=== PATIENT | male | born 1940 | race Caucasian/White ===

== ENCOUNTER 2017-04-19 19:13 | Emergency (ER) | payer MEDICARE ==
[2017-04-19] MEDS ORDERED: Verapamil 5 MG/2 ML SDV IVPUSH ONE (19:26)
--- NOTE | 2017-04-19 19:54 | EDM.PDOC ---
ED HPI GENERAL MEDICAL PROBLEM - General Chief Complaint: Cardiovascular Problem Stated Complaint: HEART Time Seen by Provider: 04/19/17 19:30 Source of Information: Reports: Patient, Family History Limitations: Reports: No Limitations - History of Present Illness INITIAL COMMENTS - FREE TEXT/NARRATIVE: 76-year-old male who has been having intermittent palpitations for several months tonight developed a rapid heartbeat which wasn't slowing down. After it lasted for 2 hours he came into the emergency room. No chest pain or shortness of breath. Just feels uncomfortable. He was very active working in the yard today. He is on hydrochlorothiazide, his only medication and has not seen a doctor for some time. He has not told anybody about his intermittent palpitations. Onset: Sudden Duration: Hour(s): (Pain occurred in his neck and back roughly 2 and one half hours ago.) Location: Reports: Neck, Chest, Back Severity: Moderate Associated Symptoms: Reports: No Other Symptoms Headache Pain Score (Numeric/FACES): 4 - Related Data Allergies Allergy/AdvReac Type Severity Reaction Status Date / Time hydrocodone Allergy Nausea and Verified 04/19/17 19:27 Vomiting Mfbromk-Vkd-Aog Reductase Allergy Muscle Verified 04/19/17 19:27 Inhibitor Weakness Home Meds: Home Meds Hydrochlorothiazide [Hydrochlorothiazide] 25 mg PO DAILY 04/20/17 [History] amLODIPine Besylate [Amlodipine Besylate] 10 mg PO DAILY 04/20/17 [History] ED ROS GENERAL - Review of Systems Review Of Systems: See Below Constitutional: Denies: Fever, Chills, Malaise HEENT: Reports: No Symptoms Respiratory: Denies: Shortness of Breath, Cough Cardiovascular: Denies: Chest Pain GI/Abdominal: Denies: Abdominal Pain, Nausea, Vomiting : Reports: No Symptoms Musculoskeletal: Denies: Neck Pain, Back Pain Skin: Reports: No Symptoms. Denies: Pallor, Diaphoresis Neurological: Reports: No Symptoms Psychiatric: Reports: No Symptoms ED EXAM, GENERAL - Physical Exam Exam: See Below Exam Limited By: No Limitations General Appearance: Alert, No Apparent Distress Eye Exam: Bilateral Eye: Normal Inspection Neck: Normal Inspection, Supple, Non-Tender (I could not reproduce pain with palpation or range of motion) Respiratory/Chest: No Respiratory Distress, Lungs Clear, Chest Non-Tender Cardiovascular: Regular Rate, Rhythm, Tachycardia GI/Abdominal: Soft, Non-Tender Extremities: Normal Inspection. No: Pedal Edema Neurological: Alert, Oriented Psychiatric: Normal Affect, Normal Mood Skin Exam: Warm, Dry EKG INTERPRETATION Rhythm: A-Flutter (EKG showed a narrow complex rapid tachycardia, likely 2-1 atrial flutter) QRS: Normal ST-T: Normal Course - Vital Signs Last Recorded V/S: Last Vital Signs Temp 98.6 F 04/19/17 22:00 Pulse 62 04/19/17 22:25 Resp 9 L 04/19/17 22:25 BP 141/77 H 04/19/17 22:25 Pulse Ox 99 04/19/17 22:25 - Orders/Labs/Meds Orders: Active Orders 24 hr Category Date Time Status EKG Documentation Completion [RC] ASDIRECTED Care 04/19/17 19:26 Active EKG Documentation Completion [RC] ASDIRECTED Care 04/19/17 20:38 Active EKG 12 Lead [EK] Routine Ther 04/19/17 19:26 Ordered EKG 12 Lead [EK] Routine Ther 04/19/17 20:38 Ordered Labs: Laboratory Tests 04/19/17 04/19/17 Range/Units 19:36 19:36 WBC 5.8 (4.5-11.0) K/uL RBC 5.23 (4.30-5.90) M/uL Hgb 15.2 H (12.0-15.0) g/dL Hct 45.7 (40.0-54.0) % MCV 87 (80-98) fL MCH 29 (27-31) pg MCHC 33 (32-36) % Plt Count 185 (150-400) K/uL Neut % (Auto) 67 H (36-66) % Lymph % (Auto) 22 L (24-44) % [place] % (Auto) 10 H (2-6) % Eos % (Auto) 0 L (2-4) % Baso % (Auto) 1 (0-1) % Sodium 143 (140-148) mmol/L Potassium 2.9 L* (3.6-5.2) mmol/L Chloride 105 (100-108) mmol/L Carbon Dioxide 29 (21-32) mmol/L Anion Gap 11.9 (5.0-14.0) mmol/L BUN 19 H (7-18) mg/dL Creatinine 1.2 (0.8-1.3) mg/dL Est Cr Clr Drug Dosing 53.19 mL/min Estimated GFR (MDRD) 59 L (>60) Glucose 100 (74-106) mg/dL Calcium 9.1 (8.5-10.1) mg/dL Troponin I < 0.017 (0.000-0.056) ng/mL Meds: Medications Discontinued Medications Generic Name Dose Route Start Last Admin Trade Name Steph PRN Reason Stop Dose Admin Potassium Chloride 20 meq/ 100 mls @ 50 mls/hr 04/19/17 20:07 04/19/17 20:29 Premix IV 04/19/17 22:06 50 mls/hr ONETIME ONE Administration Sodium Chloride 1,000 mls @ 500 mls/hr 04/19/17 20:45 04/19/17 20:39 Normal Saline IV 500 mls/hr ASDIRECTED JASON Administration Propofol 100 mg 04/19/17 20:07 04/19/17 20:15 Diprivan 20 Ml IVPUSH 04/19/17 20:08 100 mg ONETIME ONE Administration Verapamil HCl 5 mg 04/19/17 19:26 04/19/17 19:31 Calan IVPUSH 04/19/17 19:27 5 mg ONETIME ONE Administration - Re-Assessments/Exams Free Text/Narrative Re-Assessment/Exam: Initially I tried verapamil 5 mg IV which converted the atrial flutter to an atrial fibrillation with fairly good rate control but the patient did not convert to sinus rhythm. He has not eaten anything for 3 hours, and CBC BMP and troponin were obtained. His potassium was only 2.9. Other labs are reassuring, troponin was 0. At that point after signed consent the patient was given 80 mg of IV propofol and converted with 1 synchronized cardioversion at 200 J. He did have a slight run of atrial flutter about 2 minutes after his conversion but that resolved spontaneously and he remained in sinus rhythm. 20 mEq of potassium were given IV over the next hour and a half and the patient was hydrated with 1 L of normal saline. He was started on 20 mg of potassium daily and given a prescription for 2 weeks and needs to recheck with his primary care provider in the next 1-2 weeks to discuss further workup for recurring atrial fibrillation flutter. He can return if symptoms recur. Departure - Departure Time of Disposition: 22:41 Disposition: Home, Self-Care 01 Condition: Good Clinical Impression: Atrial flutter, paroxysmal, Hypokalemia Instructions: Atrial Fibrillation, [id number] Referrals: Ovidio Jones MD [Primary Care Provider] - Forms: ED Department Discharge Care Plan Goals: Take 1 pill of potassium daily for the next 2 weeks. Make an appointment to recheck with your regular provider in the next 7-10 days, return at any time if your palpitations recur and are persistent. Stay hydrated. - My Orders Last 24 Hours: My Active Orders 04/19/17 19:26 EKG Documentation Completion [RC] ASDIRECTED EKG 12 Lead [EK] Routine 04/19/17 20:38 EKG Documentation Completion [RC] ASDIRECTED EKG 12 Lead [EK] Routine - Assessment/Plan Last 24 Hours: My Active Orders 04/19/17 19:26 EKG Documentation Completion [RC] ASDIRECTED EKG 12 Lead [EK] Routine 04/19/17 20:38 EKG Documentation Completion [RC] ASDIRECTED EKG 12 Lead [EK] Routine
[2017-04-19] MEDS ORDERED: Propofol 200 MG/20 ML SDV IVPUSH ONE (20:07)
[2017-04-19] MEDS ORDERED: Potassium Chloride 20 MEQ in Premix Bag 1 BAG IV ONE (20:07)
[2017-04-19] MEDS ORDERED: Sodium Chloride 0.9% 1,000 ML IV SCH (20:45)
== END 2017-04-19 22:42 | disposition home or self-care (01) ==
LOC: JP.ED 19:13
DX: I48.92 Unspecified atrial flutter (principal); E87.6 Hypokalemia; Z79.899 Other long term (current) drug therapy; Z88.5 Allergy status to narcotic agent; Z88.8 Allergy status to other drugs, medicaments and biological substances
CPT/HCPCS: 36415; 80048; 84484; 85025; 92960; 93005; 93010; 96365; 96366; 96375; 99285; J2704; J3480; J7040; 99284; J3490

== ENCOUNTER 2017-05-15 09:56 | Emergency (ER) | payer MEDICARE ==
[2017-05-15] MEDS ORDERED: Diltiazem 25 MG/5 ML SDV IVPUSH ONE ×2 (10:10→12:16)
[2017-05-15] MEDS ORDERED: Sodium Chloride 0.9% 10 ML Syringe FLUSH PRN (10:10)
--- NOTE | 2017-05-15 10:12 | EDM.PDOC ---
ED HPI GENERAL MEDICAL PROBLEM - General Chief Complaint: Cardiovascular Problem Stated Complaint: FAST HEART RATE Time Seen by Provider: 05/15/17 10:12 Source of Information: Reports: Patient History Limitations: Reports: No Limitations - History of Present Illness INITIAL COMMENTS - FREE TEXT/NARRATIVE: pt arrived stating that he went into a rapid heart rhythm at 8 am. He did not have chest pain. He has not kyleigh sob. He did have a cardioversion done about 3 weeks ago for what was thought to be atrial flutter. Onset: Today, Sudden Duration: Hour(s): Location: Reports: Chest Associated Symptoms: Reports: Shortness of Breath, Other ( rapid heart rate. ) - Related Data Allergies Allergy/AdvReac Type Severity Reaction Status Date / Time hydrocodone Allergy Nausea and Verified 04/19/17 19:27 Vomiting Ahyiklq-Jxv-Ssq Reductase Allergy Muscle Verified 04/19/17 19:27 Inhibitor Weakness Home Meds: Home Meds Hydrochlorothiazide [Hydrochlorothiazide] 25 mg PO DAILY 04/20/17 [History] amLODIPine Besylate [Amlodipine Besylate] 10 mg PO DAILY 04/20/17 [History] Potassium Chloride 20 meq PO DAILY 05/15/17 [History] Past Medical History HEENT History: Reports: Cataract Cardiovascular History: Reports: Arrhythmia, Hypertension, Other (See Below) Other Cardiovascular History: flutter with cardiovertion Dermatologic History: Reports: Eczema - Infectious Disease History Infectious Disease History: Reports: Chicken Pox, Measles - Past Surgical History HEENT Surgical History: Reports: Cataract Surgery Cardiovascular Surgical History: Reports: None GI Surgical History: Reports: Hernia Repair/Other Social & Family History - Family History Family Medical History: Noncontributory - Tobacco Use Smoking Status *Q: Never Smoker Second Hand Smoke Exposure: No - Caffeine Use Caffeine Use: Reports: Coffee - Alcohol Use Days Per Week of Alcohol Use: 7 Number of Drinks Per Day: 1 Total Drinks Per Week: 7 - Recreational Drug Use Recreational Drug Use: No ED ROS GENERAL - Review of Systems Review Of Systems: See Below Constitutional: Reports: Weakness HEENT: Reports: No Symptoms Respiratory: Reports: Other (pt has had a severe cough. This is presently getting better. ) Cardiovascular: Reports: Palpitations Endocrine: Reports: No Symptoms GI/Abdominal: Reports: No Symptoms : Reports: No Symptoms Musculoskeletal: Reports: No Symptoms Skin: Reports: No Symptoms ED EXAM, GENERAL - Physical Exam Exam: See Below Free Text/Narrative:: pt arrived and he stated that his heart went into a abnormal heart rhythm about 8 am. He states it was very rapid. He did have a echo on thur and this did not show allarming findings. Exam Limited By: No Limitations General Appearance: Alert, Anxious, Moderate Distress Ears: Normal TMs Nose: Normal Inspection Throat/Mouth: Normal Inspection Head: Atraumatic Neck: Normal Inspection Respiratory/Chest: No Respiratory Distress Cardiovascular: Tachycardia, Irregularly Irregular, Other ( rate is 160. ) GI/Abdominal: Soft, Non-Tender (Male) Exam: Deferred Rectal (Males) Exam: Deferred Back Exam: Normal Inspection Extremities: Normal Inspection Neurological: Alert, Oriented, Normal Cognition Psychiatric: Normal Affect Course - Vital Signs Last Recorded V/S: Last Vital Signs Temp 37.1 C 05/15/17 10:53 Pulse 59 L 05/15/17 14:42 Resp 18 05/15/17 14:42 BP 119/63 05/15/17 14:42 Pulse Ox 94 L 05/15/17 13:48 - Orders/Labs/Meds Orders: Active Orders 24 hr Category Date Time Status EKG Documentation Completion [RC] ASDIRECTED Care 05/15/17 10:10 Active Chest 1V Frontal [CR] Stat Exams 05/15/17 10:29 Taken Diltiazem [Cardizem] 100 mg Med 05/15/17 11:00 Active Sodium Chloride 0.9% [Normal Saline] 100 ml IV TITRATE Sodium Chloride 0.9% [Saline Flush] Med 05/15/17 10:10 Active 10 ml FLUSH ASDIRECTED PRN Saline Lock Insert [OM.PC] Routine Oth 05/15/17 10:10 Ordered EKG 12 Lead [EK] Routine Ther 05/15/17 10:10 Ordered Medication Orders Diltiazem HCl 100 mg/ Sodium (Chloride) 100 mls @ 5 mls/hr IV TITRATE JASON; 5 MG /HR PRN Reason: Protocol Last Titration: 05/15/17 13:23 Dose: 15 mg/hr, 15 mls/hr Titration: 05/15/17 12:15 Dose: 10 mg/hr, 10 mls/hr Admin: 05/15/17 11:04 Dose: 5 mg/hr, 5 mls/hr Sodium Chloride (Saline Flush) 10 ml FLUSH ASDIRECTED PRN PRN Reason: Keep Vein Open Labs: Laboratory Tests 05/15/17 05/15/17 05/15/17 Range/Units 10:10 10:20 10:20 WBC 5.1 (4.5-11.0) K/uL RBC 5.37 (4.30-5.90) M/uL Hgb 15.6 H (12.0-15.0) g/dL Hct 46.7 (40.0-54.0) % MCV 87 (80-98) fL MCH 29 (27-31) pg MCHC 33 (32-36) % Plt Count 268 (150-400) K/uL Neut % (Auto) 68 H (36-66) % Lymph % (Auto) 23 L (24-44) % [place] % (Auto) 7 H (2-6) % Eos % (Auto) 1 L (2-4) % Baso % (Auto) 1 (0-1) % Sodium 138 L (140-148) mmol/L Potassium 4.9 (3.6-5.2) mmol/L Chloride 103 (100-108) mmol/L Carbon Dioxide 28 (21-32) mmol/L Anion Gap 11.9 (5.0-14.0) mmol/L BUN 19 H (7-18) mg/dL Creatinine 1.0 (0.8-1.3) mg/dL Est Cr Clr Drug Dosing 63.83 mL/min Estimated GFR (MDRD) > 60 (>60) Glucose 111 H (74-106) mg/dL Calcium 9.2 (8.5-10.1) mg/dL Magnesium (1.8-2.4) mg/dL Total Bilirubin 1.4 H (0.2-1.0) mg/dL AST 45 H (15-37) U/L ALT 29 (12-78) U/L Alkaline Phosphatase 88 (46-116) U/L Troponin I (0.000-0.056) ng/mL Total Protein 6.9 (6.4-8.2) g/dL Albumin 3.4 (3.4-5.0) g/dL Globulin 3.5 (2.3-3.5) g/dL Albumin/Globulin Ratio 1.0 L (1.2-2.2) TSH, Ultra Sensitive 1.315 (0.358-3.740) uIU/mL Urine Color Urine Appearance Urine pH (4.5-8.0) Ur Specific Vincent (1.008-1.030) Urine Protein (NEGATIVE) mg/dL Urine Glucose (UA) (NEGATIVE) mg/dL Urine Ketones (NEGATIVE) mg/dL Urine Occult Blood (NEGATIVE) Urine Nitrite (NEGAITVE) Urine Bilirubin (NEGATIVE) Urine Urobilinogen (NORMAL) mg/dL Ur Leukocyte Esterase (NEGATIVE) Urine RBC (0-5) Urine WBC (0-5) Ur Epithelial Cells Amorphous Sediment Urine Bacteria Urine Mucus 05/15/17 05/15/17 Range/Units 10:20 10:52 WBC (4.5-11.0) K/uL RBC (4.30-5.90) M/uL Hgb (12.0-15.0) g/dL Hct (40.0-54.0) % MCV (80-98) fL MCH (27-31) pg MCHC (32-36) % Plt Count (150-400) K/uL Neut % (Auto) (36-66) % Lymph % (Auto) (24-44) % [place] % (Auto) (2-6) % Eos % (Auto) (2-4) % Baso % (Auto) (0-1) % Sodium (140-148) mmol/L Potassium (3.6-5.2) mmol/L Chloride (100-108) mmol/L Carbon Dioxide (21-32) mmol/L Anion Gap (5.0-14.0) mmol/L BUN (7-18) mg/dL Creatinine (0.8-1.3) mg/dL Est Cr Clr Drug Dosing mL/min Estimated GFR (MDRD) (>60) Glucose (74-106) mg/dL Calcium (8.5-10.1) mg/dL Magnesium 1.9 (1.8-2.4) mg/dL Total Bilirubin (0.2-1.0) mg/dL AST (15-37) U/L ALT (12-78) U/L Alkaline Phosphatase (46-116) U/L Troponin I < 0.017 (0.000-0.056) ng/mL Total Protein (6.4-8.2) g/dL Albumin (3.4-5.0) g/dL Globulin (2.3-3.5) g/dL Albumin/Globulin Ratio (1.2-2.2) TSH, Ultra Sensitive (0.358-3.740) uIU/mL Urine Color Yellow Urine Appearance Clear Urine pH 8.0 (4.5-8.0) Ur Specific Vincent 1.015 (1.008-1.030) Urine Protein Negative (NEGATIVE) mg/dL Urine Glucose (UA) Normal (NEGATIVE) mg/dL Urine Ketones Negative (NEGATIVE) mg/dL Urine Occult Blood Negative (NEGATIVE) Urine Nitrite Negative (NEGAITVE) Urine Bilirubin Negative (NEGATIVE) Urine Urobilinogen Normal (NORMAL) mg/dL Ur Leukocyte Esterase Negative (NEGATIVE) Urine RBC 0-5 (0-5) Urine WBC 0-5 (0-5) Ur Epithelial Cells Rare Amorphous Sediment Not seen Urine Bacteria Not seen Urine Mucus Not seen Meds: Medications Generic Name Dose Route Start Last Admin Trade Name Freq PRN Reason Stop Dose Admin Diltiazem HCl 100 mg/ Sodium 100 mls @ 5 mls/hr 05/15/17 11:00 05/15/17 13:23 Chloride IV 15 mg/hr TITRATE JASON 15 mls/hr Protocol Titration 5 MG/HR Sodium Chloride 10 ml 05/15/17 10:10 Saline Flush FLUSH ASDIRECTED PRN Keep Vein Open Discontinued Medications Generic Name Dose Route Start Last Admin Trade Name Freq PRN Reason Stop Dose Admin Diltiazem HCl 10 mg 05/15/17 10:10 05/15/17 10:48 Diltiazem IVPUSH 05/15/17 10:11 10 mg ONETIME ONE Administration Diltiazem HCl 10 mg 05/15/17 12:16 05/15/17 12:18 Diltiazem IVPUSH 05/15/17 12:17 10 mg ONETIME ONE Administration Propofol Confirm 05/15/17 14:11 Diprivan 20 Ml Administered 05/15/17 14:12 Dose 200 mg .ROUTE .STK-MED ONE - Re-Assessments/Exams Free Text/Narrative Re-Assessment/Exam: 05/15/17 16:08 pt was placd on a cardizem drip and this did not convert him. He was electrically cardiocverted by Dr frost. AnticoagulaTION WAS DISCUSSED AND ALSO HE WAS ADVISED TO SEE A ep RECREATION PROGRAM COORDINATOR. Departure - Departure Time of Disposition: 16:10 Disposition: Home, Self-Care 01 Condition: Fair Clinical Impression: Atrial fibrillation status post cardioversion Instructions: Electrical Cardioversion, Care After Referrals: Angel Lucero MD [Primary Care Provider] - Forms: ED Department Discharge Care Plan Goals: sEE dR Lucero IN THE NEXT 10 DAYS, CONSIDER ANTICOAGULATION, --PT CHOOSE TO WAIT UNTIL AFTER THE HOLIDAYS, CONSIDER SEEING CARDILOGIST REGARDING HIS RHYTHM PROBLEMS. - My Orders Last 24 Hours: My Active Orders 05/15/17 10:10 EKG Documentation Completion [RC] ASDIRECTED Sodium Chloride 0.9% [Saline Flush] 10 ml FLUSH ASDIRECTED PRN Saline Lock Insert [OM.PC] Routine EKG 12 Lead [EK] Routine 05/15/17 10:29 Chest 1V Frontal [CR] Stat 05/15/17 11:00 Diltiazem [Cardizem] 100 mg Sodium Chloride 0.9% [Normal Saline] 100 ml IV TITRATE - Assessment/Plan Last 24 Hours: My Active Orders 05/15/17 10:10 EKG Documentation Completion [RC] ASDIRECTED Sodium Chloride 0.9% [Saline Flush] 10 ml FLUSH ASDIRECTED PRN Saline Lock Insert [OM.PC] Routine EKG 12 Lead [EK] Routine 05/15/17 10:29 Chest 1V Frontal [CR] Stat 05/15/17 11:00 Diltiazem [Cardizem] 100 mg Sodium Chloride 0.9% [Normal Saline] 100 ml IV TITRATE
[2017-05-15] MEDS ORDERED: Diltiazem 100 MG in Sodium Chloride 0.9% 100 ML IV SCH (11:00)
--- NOTE | 2017-05-15 13:02 | PCM.CONS ---
H&P History of Present Illness - General Date of Service: 05/15/17 Source of Information: Patient, Family, Old Records, Provider, RN Notes Reviewed History Limitations: Reports: No Limitations - History of Present Illness Initial Comments - Free Text/Narative: Mr. Sanchez is a 76-year-old gentleman who I been asked to see by Dr. Whaley for recommendations concerning evaluation and management of atrial fibrillation with rapid ventricular response. He was seen in the emergency department approximately 3 weeks ago with atrial flutter that then spontaneously converted to atrial fibrillation. He was cardioverted to sinus rhythm and has done fairly well over the past few weeks. He thinks that he may have had one transient episode of rapid heart rate that lasted just a few minutes and then resolve spontaneously. He felt well when he got up this morning but then noted onset of rapid heart rate at approximately 8:30. He presented to the emergency department for further evaluation and management. Initially was noted to be in atrial flutter but since has converted to atrial fibrillation. Laboratory studies are unremarkable including electrolytes and troponin. He was given IV Cardizem bolus and started on a continuous infusion of Cardizem and his rate is under better control in the range of 100-110. He denies any symptoms of chest pain or pressure shortness of breath or lightheadedness. - Related Data Allergies/Adverse Reactions: Allergies Allergy/AdvReac Type Severity Reaction Status Date / Time hydrocodone Allergy Nausea and Verified 04/19/17 19:27 Vomiting Njruenv-Djh-Hmf Reductase Allergy Muscle Verified 04/19/17 19:27 Inhibitor Weakness Home Medications: Home Meds Hydrochlorothiazide [Hydrochlorothiazide] 25 mg PO DAILY 04/20/17 [History] amLODIPine Besylate [Amlodipine Besylate] 10 mg PO DAILY 04/20/17 [History] Potassium Chloride 20 meq PO DAILY 05/15/17 [History] Past Medical History HEENT History: Reports: Cataract Cardiovascular History: Reports: Arrhythmia, Hypertension, Other (See Below) Other Cardiovascular History: flutter with cardiovertion Dermatologic History: Reports: Eczema - Infectious Disease History Infectious Disease History: Reports: Chicken Pox, Measles - Past Surgical History HEENT Surgical History: Reports: Cataract Surgery Cardiovascular Surgical History: Reports: None GI Surgical History: Reports: Hernia Repair/Other Social & Family History - Family History Family Medical History: Noncontributory - Tobacco Use Smoking Status *Q: Never Smoker Second Hand Smoke Exposure: No - Caffeine Use Caffeine Use: Reports: Coffee Other Caffeine Use: has went off caffeine for 2 weeks - Alcohol Use Days Per Week of Alcohol Use: 7 Number of Drinks Per Day: 1 Total Drinks Per Week: 7 - Recreational Drug Use Recreational Drug Use: No H&P Review of Systems - Review of Systems: Review Of Systems: See Below General: Reports: No Symptoms HEENT: Reports: No Symptoms Pulmonary: Reports: No Symptoms Cardiovascular: Reports: Palpitations. Denies: Chest Pain, Dyspnea on Exertion , Orthopnea, PND, Edema, Lightheadedness Gastrointestinal: Reports: No Symptoms Genitourinary: Reports: No Symptoms Musculoskeletal: Reports: No Symptoms Skin: Reports: No Symptoms Neurological: Reports: No Symptoms Exam - Exam Exam: See Below - Vital Signs Vital Signs: Last Vital Signs Temp 98.7 F 05/15/17 10:53 Pulse 102 H 05/15/17 12:23 Resp 18 05/15/17 12:08 BP 126/69 05/15/17 12:23 Pulse Ox 96 05/15/17 10:05 Weight: 168 lb - Exam General: Alert, Oriented, Cooperative HEENT: Conjunctiva Clear, Hearing Intact, Mucosa Moist & [place], Normal Nasal Septum, Posterior Pharynx Clear, Pupils Equal Neck: Supple, Trachea Midline, +2 Carotid Pulse wo Bruit Lungs: Clear to Auscultation, Normal Respiratory Effort Cardiovascular: Normal S1, Normal S2, Irregular Rhythm, Tachycardia. No: Systolic Murmur, Diastolic Murmur GI/Abdominal Exam: Soft, Non-Tender, No Organomegaly, No Distention Back Exam: Normal Inspection, Full Range of Motion Extremities: Non-Tender, No Pedal Edema Skin: Warm, Dry, Intact Neuro Extensive - Mental Status: Alert, Oriented x3, Normal Mood/Affect, Normal Cognition, Memory Intact - Patient Data Lab Results Last 24 hrs: Laboratory Results - last 24 hr 05/15/17 05/15/17 05/15/17 Range/Units 10:20 10:20 10:20 WBC 5.1 (4.5-11.0) K/uL RBC 5.37 (4.30-5.90) M/uL Hgb 15.6 H (12.0-15.0) g/dL Hct 46.7 (40.0-54.0) % MCV 87 (80-98) fL MCH 29 (27-31) pg MCHC 33 (32-36) % Plt Count 268 (150-400) K/uL Neut % (Auto) 68 H (36-66) % Lymph % (Auto) 23 L (24-44) % [place] % (Auto) 7 H (2-6) % Eos % (Auto) 1 L (2-4) % Baso % (Auto) 1 (0-1) % Sodium 138 L (140-148) mmol/L Potassium 4.9 (3.6-5.2) mmol/L Chloride 103 (100-108) mmol/L Carbon Dioxide 28 (21-32) mmol/L Anion Gap 11.9 (5.0-14.0) mmol/L BUN 19 H (7-18) mg/dL Creatinine 1.0 (0.8-1.3) mg/dL Est Cr Clr Drug Dosing 63.83 mL/min Estimated GFR (MDRD) > 60 (>60) Glucose 111 H (74-106) mg/dL Calcium 9.2 (8.5-10.1) mg/dL Magnesium 1.9 (1.8-2.4) mg/dL Total Bilirubin 1.4 H (0.2-1.0) mg/dL AST 45 H (15-37) U/L ALT 29 (12-78) U/L Alkaline Phosphatase 88 (46-116) U/L Troponin I < 0.017 (0.000-0.056) ng/mL Total Protein 6.9 (6.4-8.2) g/dL Albumin 3.4 (3.4-5.0) g/dL Globulin 3.5 (2.3-3.5) g/dL Albumin/Globulin Ratio 1.0 L (1.2-2.2) Urine Color Urine Appearance Urine pH (4.5-8.0) Ur Specific [place] (1.008-1.030) Urine Protein (NEGATIVE) mg/dL Urine Glucose (UA) (NEGATIVE) mg/dL Urine Ketones (NEGATIVE) mg/dL Urine Occult Blood (NEGATIVE) Urine Nitrite (NEGAITVE) Urine Bilirubin (NEGATIVE) Urine Urobilinogen (NORMAL) mg/dL Ur Leukocyte Esterase (NEGATIVE) Urine RBC (0-5) Urine WBC (0-5) Ur Epithelial Cells Amorphous Sediment Urine Bacteria Urine Mucus 05/15/17 Range/Units 10:52 WBC (4.5-11.0) K/uL RBC (4.30-5.90) M/uL Hgb (12.0-15.0) g/dL Hct (40.0-54.0) % MCV (80-98) fL MCH (27-31) pg MCHC (32-36) % Plt Count (150-400) K/uL Neut % (Auto) (36-66) % Lymph % (Auto) (24-44) % [place] % (Auto) (2-6) % Eos % (Auto) (2-4) % Baso % (Auto) (0-1) % Sodium (140-148) mmol/L Potassium (3.6-5.2) mmol/L Chloride (100-108) mmol/L Carbon Dioxide (21-32) mmol/L Anion Gap (5.0-14.0) mmol/L BUN (7-18) mg/dL Creatinine (0.8-1.3) mg/dL Est Cr Clr Drug Dosing mL/min Estimated GFR (MDRD) (>60) Glucose (74-106) mg/dL Calcium (8.5-10.1) mg/dL Magnesium (1.8-2.4) mg/dL Total Bilirubin (0.2-1.0) mg/dL AST (15-37) U/L ALT (12-78) U/L Alkaline Phosphatase (46-116) U/L Troponin I (0.000-0.056) ng/mL Total Protein (6.4-8.2) g/dL Albumin (3.4-5.0) g/dL Globulin (2.3-3.5) g/dL Albumin/Globulin Ratio (1.2-2.2) Urine Color Yellow Urine Appearance Clear Urine pH 8.0 (4.5-8.0) Ur Specific [place] 1.015 (1.008-1.030) Urine Protein Negative (NEGATIVE) mg/dL Urine Glucose (UA) Normal (NEGATIVE) mg/dL Urine Ketones Negative (NEGATIVE) mg/dL Urine Occult Blood Negative (NEGATIVE) Urine Nitrite Negative (NEGAITVE) Urine Bilirubin Negative (NEGATIVE) Urine Urobilinogen Normal (NORMAL) mg/dL Ur Leukocyte Esterase Negative (NEGATIVE) Urine RBC 0-5 (0-5) Urine WBC 0-5 (0-5) Ur Epithelial Cells Rare Amorphous Sediment Not seen Urine Bacteria Not seen Urine Mucus Not seen Result Diagrams: 05/15/17 10:20 05/15/17 10:20 Consult PN Assessment/Plan Procedures: Procedures ASSAY OF TROPONIN QUANT (04/19/17) CARDIOVERSION ELECTRIC EXT (04/19/17) COMPLETE CBC W/AUTO DIFF WBC (04/19/17) ELECTROCARDIOGRAM REPORT (04/19/17) ELECTROCARDIOGRAM TRACING (04/19/17) EMERGENCY DEPT VISIT (04/19/17) METABOLIC PANEL TOTAL CA (04/19/17) ROUTINE VENIPUNCTURE (04/19/17) THER/PROPH/DIAG IV INF ADDON (04/19/17) THER/PROPH/DIAG IV INF INIT (04/19/17) TTE W/DOPPLER COMPLETE (07/02/16) TX/PRO/DX INJ NEW DRUG ADDON (04/19/17) (1) Atrial fibrillation with rapid ventricular response SNOMED Code(s): 369020166433158 Code(s): I48.91 - UNSPECIFIED ATRIAL FIBRILLATION Current Visit: Yes Problem List Initiated/Reviewed/Updated: Yes Plan: ASSESSMENT AND RECOMMENDATIONS ATRIAL FIBRILLATION WITH RAPID VENTRICULAR RESPONSE-at least the third episode over the past few weeks. Minimally symptomatic now that rate control has been achieved. Given recurrent episodes will need to consider anticoagulation, [id number] score is 3. Will likely also need to consider antidysrhythmic therapy. Discussed options for management at this time with the patient and his including admission and rate control. Versus electrical cardioversion in the emergency department. Because of a fairly large breakfast at 8:00 will need to wait until at least 2 PM to proceed with cardioversion. We also discussed options for anticoagulation, he would like to hold on this decision until after the holidays when he can discuss it further with his primary care provider. Echocardiogram obtained this past week shows preserved left ventricular function , moderate mitral regurgitation, aortic sclerosis without stenosis, left atrial enlargement. -Plan to proceed with cardioversion this afternoon, sedation provided by anesthesia service -Plan to initiate anticoagulation as an outpatient -Consider referral to cardiology and possible antidysrhythmic therapy Requesting Provider: [facility] Date Consult Requested: 05/15/17 Reason for Consult: Atrial fibrillation with rapid ventricular response Patient History Reviewed: Yes Notified Requestor: Yes
[2017-05-15] MEDS ORDERED: Propofol 200 MG/20 ML SDV ONE (14:11)
--- NOTE | 2017-05-15 14:39 | PCM.OPNOTE ---
- General Post-Op/Procedure Note Date of Surgery/Procedure: 05/15/17 Operative Procedure(s): Electrical cardioversion Pre Op Diagnosis: Atrial fibrillation with rapid ventricular response Post-Op Diagnosis: Successful cardioversion to sinus rhythm Anesthesia Technique: Moderate Sedation Primary Surgeon: Lambert Martin Anesthesia Provider: John Holm Complications: None Condition: Good Free Text/Narrative:: Mr. Sanchez is a 76-year-old gentleman who presented to the emergency department with rapid heart rate. Initially was noted to have a rate of approximately 150, regular, consistent with atrial flutter. Shortly after arrival he spontaneously converted to atrial fibrillation with rapid ventricular response. He's had one previous emergency department visit in the last month for atrial flutter/fib. He thinks he is had one shorter duration episodes since then that resolved spontaneously. Options for management were discussed including hospitalization with rate control versus electrical cardioversion in the emergency department. He is opted for cardioversion wrists and goals which were reviewed with him as well as his . He has given informed consent to proceed with electrical cardioversion. IV sedation and monitoring was provided by Mr. Holm from the anesthesia department. After adequate sedation was achieved patient was converted to sinus rhythm using 200 J of energy delivered in a synchronized fashion. He converted to sinus rhythm and remained in that rhythm until discharge from the emergency department. You are he has a follow-up appointment scheduled with his primary care provider Dr. Lucero for the first part of May. We did discuss anticoagulation and he prefers to defer this until he sees Dr. Lucero for follow-up.
--- NOTE | 2017-05-17 08:44 | CR ---
Chest 1V Frontal HISTORY: atrial flutter. COMPARISON: 08/07/2011 FINDINGS: Lungs appear clear and normally aerated. Cardiomediastinal silhouette is within normal limits. There is mild atherosclerotic calcification in the aortic arch. No vascular redistribution or pleural fluid can be seen. Bony structures and soft tissues are unremarkable. IMPRESSION: No acute chest abnormality or significant interval change is identified.
--- NOTE | 2017-05-17 11:54 | ANES ---
DATE OF SERVICE: 05/15/2017 INDICATIONS: This is a 76-year-old gentleman in the emergency room in atrial fibrillation. I was called approximately at noon by Dr. Martin, requesting sedation for cardioversion. Dr. Martin, said the patient had a very large breakfast and at approximately 8 o'clock in the morning, and we decided to wait until 2 o'clock to give him a full 6 hours to clear his stomach. When I got here, the patient was hooked up to monitors, I placed him on nasal O2. The procedure was explained to him in detail. All questions were answered. He has had a cardioversion in the past and so is familiar with the procedure and the risks, and a consent was signed. DESCRIPTION OF PROCEDURE: I then used an Ambu with 10 L of oxygen, got his SaO2 up to the 99 level, he was then given 100 mg of propofol intravenously, and after adequate sedation, he was cardioverted x1, and he did convert. After approximately 15 minutes, he was answering questions appropriately and tolerated the procedure well. John Holm CRNA /[id number]
== END 2017-05-15 16:30 | disposition home or self-care (01) ==
LOC: JP.ED 09:56
DX: I48.91 Unspecified atrial fibrillation (principal); I10 Essential (primary) hypertension; Z88.5 Allergy status to narcotic agent; Z88.8 Allergy status to other drugs, medicaments and biological substances; Z79.899 Other long term (current) drug therapy
CPT/HCPCS: 36415; 71010; 80053; 81001; 83735; 84443; 84484; 85025; 92960; 93005; 96365; 96366; 96375; 96376; 99285; J2704; J3490; J7030; 93010; 99284

== ENCOUNTER 2017-07-02 20:36 | Emergency (ER) | payer MEDICARE ==
[2017-07-02] MEDS ORDERED: Diltiazem 25 MG/5 ML SDV IVPUSH ONE (21:03)
[2017-07-02] MEDS ORDERED: Sodium Chloride 0.9% 10 ML Syringe FLUSH PRN (21:03)
[2017-07-02] MEDS ORDERED: Potassium Chloride 20 MEQ in Premix Bag 1 BAG IV ONE (21:30)
[2017-07-02] MEDS ORDERED: Potassium Chloride 20 MEQ Tab.ER PO ONE (21:30)
[2017-07-02] MEDS ORDERED: Magnesium Oxide 400 MG Tab PO ONE (21:32)
--- NOTE | 2017-07-02 21:36 | EDM.PDOC ---
ED HPI GENERAL MEDICAL PROBLEM - General Chief Complaint: Cardiovascular Problem Stated Complaint: HEART Time Seen by Provider: 07/02/17 20:40 Source of Information: Reports: Patient, Family History Limitations: Reports: No Limitations - History of Present Illness INITIAL COMMENTS - FREE TEXT/NARRATIVE: pt arrived stating that he went into atrial fib about 6 pm tonight. He did not have chest pain at any point. Onset: Today, Other ( at 6 pm) Duration: Hour(s): Location: Reports: Chest, Other (pt is in a rapid rhytm. ) Associated Symptoms: Reports: No Other Symptoms, Other ( slightly lite headed. ) - Related Data Allergies Allergy/AdvReac Type Severity Reaction Status Date / Time hydrocodone Allergy Nausea and Verified 07/02/17 20:38 Vomiting Ljyhnhh-Svo-Qyn Reductase Allergy Muscle Verified 07/02/17 20:38 Inhibitor Weakness Home Meds: Home Meds Hydrochlorothiazide [Hydrochlorothiazide] 25 mg PO DAILY 04/20/17 [History] amLODIPine Besylate [Amlodipine Besylate] 10 mg PO DAILY 04/20/17 [History] Potassium Chloride 20 meq PO DAILY 05/15/17 [History] Metoprolol Succinate [Toprol Xl] 12.5 mg PO DAILY 07/02/17 [History] Warfarin [Coumadin] 5 mg PO MOTUTHFR 07/02/17 [History] Warfarin [Coumadin] 7.5 mg PO SUWESA 07/02/17 [History] Past Medical History HEENT History: Reports: Cataract Cardiovascular History: Reports: Arrhythmia, Hypertension, Other (See Below) Other Cardiovascular History: flutter with cardiovertion Gastrointestinal History: Reports: None Dermatologic History: Reports: Eczema - Infectious Disease History Infectious Disease History: Reports: Chicken Pox, Measles - Past Surgical History Head Surgeries/Procedures: Reports: None HEENT Surgical History: Reports: Cataract Surgery Cardiovascular Surgical History: Reports: None GI Surgical History: Reports: Hernia Repair/Other Neurological Surgical History: Reports: None Dermatological Surgical History: Reports: None Social & Family History - Family History Family Medical History: Noncontributory - Tobacco Use Smoking Status *Q: Never Smoker Second Hand Smoke Exposure: No - Caffeine Use Caffeine Use: Reports: Coffee, Tea Other Caffeine Use: has went off caffeine for 2 weeks - Alcohol Use Days Per Week of Alcohol Use: 7 Number of Drinks Per Day: 1 Total Drinks Per Week: 7 - Recreational Drug Use Recreational Drug Use: No ED ROS GENERAL - Review of Systems Review Of Systems: See Below Constitutional: Reports: No Symptoms HEENT: Reports: No Symptoms Respiratory: Reports: No Symptoms Cardiovascular: Reports: Palpitations, Other (Pt feels like his heart is irregular. ) Endocrine: Reports: No Symptoms GI/Abdominal: Reports: No Symptoms : Reports: No Symptoms Musculoskeletal: Reports: No Symptoms Skin: Reports: No Symptoms ED EXAM, GENERAL - Physical Exam Exam: See Below Free Text/Narrative:: pt arrived with a history of going into atrial fib at about 6 pm tonight. He did not have chest pain. He has been cardioverted twice earlier in the past 6 monthes. Exam Limited By: No Limitations General Appearance: Alert, Anxious, Mild Distress Ears: Normal TMs Nose: Normal Inspection Throat/Mouth: Normal Inspection Head: Atraumatic Neck: Normal Inspection Respiratory/Chest: No Respiratory Distress Cardiovascular: Irregularly Irregular, Other ( atrial fib at about 120. ) GI/Abdominal: Soft, Non-Tender (Male) Exam: Deferred Rectal (Males) Exam: Deferred Extremities: Normal Inspection Neurological: Alert, Oriented, Normal Cognition Psychiatric: Normal Affect Course - Vital Signs Last Recorded V/S: Last Vital Signs Temp 36.5 C 07/02/17 20:39 Pulse 55 L 07/02/17 21:56 Resp 8 L 07/02/17 21:56 BP 122/72 07/02/17 21:56 Pulse Ox 95 07/02/17 21:56 - Orders/Labs/Meds Orders: Active Orders 24 hr Category Date Time Status EKG Documentation Completion [RC] ASDIRECTED Care 07/02/17 20:47 Active Potassium Chloride [KCL 20 MEQ in Water 100 ML] 20 meq Med 07/02/17 21:30 Active Premix Bag 1 bag IV ONETIME Sodium Chloride 0.9% [Saline Flush] Med 07/02/17 21:03 Active 10 ml FLUSH ASDIRECTED PRN Saline Lock Insert [OM.PC] Routine Oth 07/02/17 21:03 Ordered EKG 12 Lead [EK] Routine Ther 07/02/17 20:47 Ordered Medication Orders Potassium Chloride 20 meq/ (Premix) 100 mls @ 50 mls/hr IV ONETIME ONE Stop: 07/02/17 23:29 Last Admin: 07/02/17 21:39 Dose: 50 mls/hr Sodium Chloride (Saline Flush) 10 ml FLUSH ASDIRECTED PRN PRN Reason: Keep Vein Open Last Admin: 07/02/17 21:18 Dose: 10 ml Labs: Laboratory Tests 07/02/17 07/02/17 07/02/17 Range/Units 20:46 20:46 20:46 WBC 6.2 (4.5-11.0) K/uL RBC 5.40 (4.30-5.90) M/uL Hgb 15.8 H (12.0-15.0) g/dL Hct 46.6 (40.0-54.0) % MCV 86 (80-98) fL MCH 29 (27-31) pg MCHC 34 (32-36) % Plt Count 179 (150-400) K/uL Neut % (Auto) 66 (36-66) % Lymph % (Auto) 25 (24-44) % [place] % (Auto) 8 H (2-6) % Eos % (Auto) 1 L (2-4) % Baso % (Auto) 1 (0-1) % PT 17.9 H (9.5-12.0) sec INR 1.64 H (0.80-1.20) Sodium 138 L (140-148) mmol/L Potassium 3.0 L (3.6-5.2) mmol/L Chloride 102 (100-108) mmol/L Carbon Dioxide 27 (21-32) mmol/L Anion Gap 12.0 (5.0-14.0) mmol/L BUN 17 (7-18) mg/dL Creatinine 1.2 (0.8-1.3) mg/dL Est Cr Clr Drug Dosing 53.19 mL/min Estimated GFR (MDRD) 59 L (>60) Glucose 102 (74-106) mg/dL Calcium 8.9 (8.5-10.1) mg/dL Magnesium (1.8-2.4) mg/dL Total Bilirubin 1.9 H (0.2-1.0) mg/dL AST 30 (15-37) U/L ALT 27 (12-78) U/L Alkaline Phosphatase 77 (46-116) U/L Total Protein 6.4 (6.4-8.2) g/dL Albumin 3.8 (3.4-5.0) g/dL Globulin 2.6 (2.3-3.5) g/dL Albumin/Globulin Ratio 1.5 (1.2-2.2) Urine Color Urine Appearance Urine pH (4.5-8.0) Ur Specific [place] (1.008-1.030) Urine Protein (NEGATIVE) mg/dL Urine Glucose (UA) (NEGATIVE) mg/dL Urine Ketones (NEGATIVE) mg/dL Urine Occult Blood (NEGATIVE) Urine Nitrite (NEGAITVE) Urine Bilirubin (NEGATIVE) Urine Urobilinogen (NORMAL) mg/dL Ur Leukocyte Esterase (NEGATIVE) Urine RBC (0-5) Urine WBC (0-5) Ur Epithelial Cells Amorphous Sediment Urine Bacteria Urine Mucus 07/02/17 07/02/17 Range/Units 20:46 21:27 WBC (4.5-11.0) K/uL RBC (4.30-5.90) M/uL Hgb (12.0-15.0) g/dL Hct (40.0-54.0) % MCV (80-98) fL MCH (27-31) pg MCHC (32-36) % Plt Count (150-400) K/uL Neut % (Auto) (36-66) % Lymph % (Auto) (24-44) % [place] % (Auto) (2-6) % Eos % (Auto) (2-4) % Baso % (Auto) (0-1) % PT (9.5-12.0) sec INR (0.80-1.20) Sodium (140-148) mmol/L Potassium (3.6-5.2) mmol/L Chloride (100-108) mmol/L Carbon Dioxide (21-32) mmol/L Anion Gap (5.0-14.0) mmol/L BUN (7-18) mg/dL Creatinine (0.8-1.3) mg/dL Est Cr Clr Drug Dosing mL/min Estimated GFR (MDRD) (>60) Glucose (74-106) mg/dL Calcium (8.5-10.1) mg/dL Magnesium 1.7 L (1.8-2.4) mg/dL Total Bilirubin (0.2-1.0) mg/dL AST (15-37) U/L ALT (12-78) U/L Alkaline Phosphatase (46-116) U/L Total Protein (6.4-8.2) g/dL Albumin (3.4-5.0) g/dL Globulin (2.3-3.5) g/dL Albumin/Globulin Ratio (1.2-2.2) Urine Color Yellow Urine Appearance Clear Urine pH 7.0 (4.5-8.0) Ur Specific [place] 1.005 L (1.008-1.030) Urine Protein Negative (NEGATIVE) mg/dL Urine Glucose (UA) Normal (NEGATIVE) mg/dL Urine Ketones 15 H (NEGATIVE) mg/dL Urine Occult Blood Negative (NEGATIVE) Urine Nitrite Negative (NEGAITVE) Urine Bilirubin Negative (NEGATIVE) Urine Urobilinogen Normal (NORMAL) mg/dL Ur Leukocyte Esterase Negative (NEGATIVE) Urine RBC 0-5 (0-5) Urine WBC Not seen (0-5) Ur Epithelial Cells Rare Amorphous Sediment Not seen Urine Bacteria Rare Urine Mucus Not seen Meds: Medications Generic Name Dose Route Start Last Admin Trade Name Freq PRN Reason Stop Dose Admin Potassium Chloride 20 meq/ 100 mls @ 50 mls/hr 07/02/17 21:30 07/02/17 21:39 Premix IV 07/02/17 23:29 50 mls/hr ONETIME ONE Administration Sodium Chloride 10 ml 07/02/17 21:03 07/02/17 21:18 Saline Flush FLUSH 10 ml ASDIRECTED PRN Administration Keep Vein Open Discontinued Medications Generic Name Dose Route Start Last Admin Trade Name Freq PRN Reason Stop Dose Admin Diltiazem HCl 10 mg 07/02/17 21:03 07/02/17 21:17 Diltiazem IVPUSH 07/02/17 21:04 10 mg ONETIME ONE Administration Magnesium Oxide 400 mg 07/02/17 21:32 07/02/17 21:39 Magnesium Oxide PO 07/02/17 21:33 400 mg ONETIME ONE Administration Potassium Chloride 20 meq 07/02/17 21:30 07/02/17 21:39 Klor-Con M20 PO 07/02/17 21:31 20 meq ONETIME ONE Administration - Re-Assessments/Exams Free Text/Narrative Re-Assessment/Exam: 07/02/17 22:19 ekg shows atrial fib with a rate of about 120. He has a low k at 3. He has a low mag at 1.7. He has a lower inr. Departure - Departure Time of Disposition: 22:20 Disposition: Home, Self-Care 01 Condition: Fair Clinical Impression: Atrial fibrillation, Hypokalemia, Hypomagnesemia Referrals: Angel Lucero MD [Primary Care Provider] - Forms: ED Department Discharge Care Plan Goals: Increase kcl to 20meq bid, take an extra 5 mg of coumadin tomorrow, rtc if further rhythm problems, metorprol 25 mg 1/2 tab bid, appt with Dr Lucero Wed or Wednesday, recheck Inr the first of the week. - My Orders Last 24 Hours: My Active Orders 07/02/17 20:47 EKG Documentation Completion [RC] ASDIRECTED EKG 12 Lead [EK] Routine 07/02/17 21:03 Sodium Chloride 0.9% [Saline Flush] 10 ml FLUSH ASDIRECTED PRN Saline Lock Insert [OM.PC] Routine 07/02/17 21:30 Potassium Chloride [KCL 20 MEQ in Water 100 ML] 20 meq Premix Bag 1 bag IV ONETIME - Assessment/Plan Last 24 Hours: My Active Orders 07/02/17 20:47 EKG Documentation Completion [RC] ASDIRECTED EKG 12 Lead [EK] Routine 07/02/17 21:03 Sodium Chloride 0.9% [Saline Flush] 10 ml FLUSH ASDIRECTED PRN Saline Lock Insert [OM.PC] Routine 07/02/17 21:30 Potassium Chloride [KCL 20 MEQ in Water 100 ML] 20 meq Premix Bag 1 bag IV ONETIME
== END 2017-07-03 00:14 | disposition home or self-care (01) ==
LOC: JP.ED 20:36
DX: I48.91 Unspecified atrial fibrillation (principal); E87.6 Hypokalemia; E83.42 Hypomagnesemia; I10 Essential (primary) hypertension; Z79.01 Long term (current) use of anticoagulants; Z79.899 Other long term (current) drug therapy; Z88.5 Allergy status to narcotic agent; Z88.8 Allergy status to other drugs, medicaments and biological substances
CPT/HCPCS: 36415; 80053; 81001; 83735; 85025; 85610; 93005; 96361; 96374; 99284; A9270; J3480; J3490; J7050; 93010

== ENCOUNTER 2017-07-25 03:39 | Emergency (ER) | payer MEDICARE ==
[2017-07-25] MEDS ORDERED: Sodium Chloride 0.9% 10 ML Syringe FLUSH PRN (03:49)
[2017-07-25] MEDS ORDERED: Diltiazem 25 MG/5 ML SDV IVPUSH ONE (03:50)
--- NOTE | 2017-07-25 03:54 | EDM.PDOC ---
ED HPI GENERAL MEDICAL PROBLEM - General Stated Complaint: A-FIB Time Seen by Provider: 07/25/17 03:46 Source of Information: Reports: Patient, Family, Old Records, RN Notes Reviewed History Limitations: Reports: No Limitations - History of Present Illness INITIAL COMMENTS - FREE TEXT/NARRATIVE: 76-year-old gentleman presents to the emergency department day complaint of atrial fibrillation, he has a known history of atrial fibrillation has been cardioverted at least 3 times in the past this particular event started at 2:30 yesterday he will sometimes spontaneously resolve however he came in today ongoing palpitations he denies any chest pain. He is currently anticoagulated - Related Data Allergies Allergy/AdvReac Type Severity Reaction Status Date / Time hydrocodone Allergy Nausea and Verified 07/02/17 20:38 Vomiting Gjsdzsm-[id number] Reductase Allergy Muscle Verified 07/02/17 20:38 Inhibitor Weakness Home Meds: Home Meds Hydrochlorothiazide [Hydrochlorothiazide] 25 mg PO DAILY 04/20/17 [History] amLODIPine Besylate [Amlodipine Besylate] 10 mg PO DAILY 04/20/17 [History] Potassium Chloride 20 meq PO DAILY 05/15/17 [History] Metoprolol Succinate [Toprol Xl] 12.5 mg PO DAILY 07/02/17 [History] Warfarin [Coumadin] 5 mg PO MOTUTHFR 07/02/17 [History] Warfarin [Coumadin] 7.5 mg PO SUWESA 07/02/17 [History] Past Medical History HEENT History: Reports: Cataract Cardiovascular History: Reports: Afib (Paroxysmal), Arrhythmia, Hypertension, Other (See Below) Other Cardiovascular History: flutter with cardiovertion Dermatologic History: Reports: Eczema - Infectious Disease History Infectious Disease History: Reports: Chicken Pox, Measles - Past Surgical History Head Surgeries/Procedures: Reports: None HEENT Surgical History: Reports: Cataract Surgery Cardiovascular Surgical History: Reports: None GI Surgical History: Reports: Hernia Repair/Other Neurological Surgical History: Reports: None Dermatological Surgical History: Reports: None Social & Family History - Family History Family Medical History: Noncontributory - Tobacco Use Smoking Status *Q: Never Smoker Second Hand Smoke Exposure: No - Caffeine Use Caffeine Use: Reports: Coffee, Tea Other Caffeine Use: has went off caffeine for 2 weeks - Alcohol Use Days Per Week of Alcohol Use: 7 Number of Drinks Per Day: 1 Total Drinks Per Week: 7 - Recreational Drug Use Recreational Drug Use: No ED ROS GENERAL - Review of Systems Review Of Systems: See Below (Except) Constitutional: Reports: No Symptoms HEENT: Reports: No Symptoms Respiratory: Reports: No Symptoms Cardiovascular: Reports: Palpitations GI/Abdominal: Reports: No Symptoms : Reports: No Symptoms Musculoskeletal: Reports: No Symptoms Skin: Reports: No Symptoms Neurological: Reports: No Symptoms Psychiatric: Reports: No Symptoms ED EXAM, GENERAL - Physical Exam Exam: See Below Exam Limited By: No Limitations General Appearance: Alert, WD/WN, No Apparent Distress Eye Exam: Bilateral Eye: Normal Inspection Ears: Normal External Exam Head: Atraumatic, Normocephalic Neck: Normal Inspection, Supple, Non-Tender, Full Range of Motion Respiratory/Chest: No Respiratory Distress, Lungs Clear, Normal Breath Sounds, No Accessory Muscle Use Cardiovascular: No Murmur, Irregularly Irregular GI/Abdominal: Soft, Non-Tender Extremities: No Pedal Edema Course - Vital Signs Last Recorded V/S: Last Vital Signs Temp 96.1 F 07/25/17 04:10 Pulse 58 L 07/25/17 04:45 Resp 13 07/25/17 04:45 BP 112/63 07/25/17 04:45 Pulse Ox 96 07/25/17 04:45 - Orders/Labs/Meds Orders: Active Orders 24 hr Category Date Time Status Cardiac Monitoring [RC] .As Directed Care 07/25/17 03:49 Active EKG Documentation Completion [RC] ASDIRECTED Care 07/25/17 03:50 Active Peripheral IV Care [RC] . DIRECTED Care 07/25/17 03:50 Active Diltiazem [Cardizem] 100 mg Med 07/25/17 04:00 Active Sodium Chloride 0.9% [Normal Saline] 100 ml IV TITRATE Sodium Chloride 0.9% [Normal Saline] 1,000 ml Med 07/25/17 04:00 Active IV ASDIRECTED Sodium Chloride 0.9% [Saline Flush] Med 07/25/17 03:49 Active 10 ml FLUSH ASDIRECTED PRN Peripheral IV Insertion Adult [OM.PC] Stat Oth 07/25/17 03:49 Ordered EKG 12 Lead [EK] Stat Ther 07/25/17 03:50 Ordered Medication Orders Sodium Chloride (Normal Saline) 1,000 mls @ 125 mls/hr IV ASDIRECTED JASON Last Admin: 07/25/17 04:04 Dose: 125 mls/hr Diltiazem HCl 100 mg/ Sodium (Chloride) 100 mls @ 5 mls/hr IV TITRATE JASON; 5 MG /HR PRN Reason: Protocol Last Titration: 07/25/17 04:28 Dose: 0 mg/hr, 0 mls/hr Admin: 07/25/17 04:08 Dose: 5 mg/hr, 5 mls/hr Sodium Chloride (Saline Flush) 10 ml FLUSH ASDIRECTED PRN PRN Reason: Keep Vein Open Last Admin: 07/25/17 04:04 Dose: 10 ml Labs: Laboratory Tests 07/25/17 07/25/17 07/25/17 Range/Units 04:02 04:02 04:02 WBC 4.0 L (4.5-11.0) K/uL RBC 5.31 (4.30-5.90) M/uL Hgb 15.4 H (12.0-15.0) g/dL Hct 46.6 (40.0-54.0) % MCV 88 (80-98) fL MCH 29 (27-31) pg MCHC 33 (32-36) % Plt Count 164 (150-400) K/uL Neut % (Auto) 54 (36-66) % Lymph % (Auto) 34 (24-44) % [place] % (Auto) 7 H (2-6) % Eos % (Auto) 4 (2-4) % Baso % (Auto) 1 (0-1) % PT 20.4 H (9.5-12.0) sec INR 1.86 H (0.80-1.20) Sodium 142 (140-148) mmol/L Potassium 3.3 L (3.6-5.2) mmol/L Chloride 106 (100-108) mmol/L Carbon Dioxide 29 (21-32) mmol/L Anion Gap 10.3 (5.0-14.0) mmol/L BUN 16 (7-18) mg/dL Creatinine 1.2 (0.8-1.3) mg/dL Est Cr Clr Drug Dosing 53.19 mL/min Estimated GFR (MDRD) 59 L (>60) Glucose 95 (74-106) mg/dL Calcium 8.4 L (8.5-10.1) mg/dL Total Bilirubin 1.0 (0.2-1.0) mg/dL AST 21 (15-37) U/L ALT 25 (12-78) U/L Alkaline Phosphatase 74 (46-116) U/L Troponin I < 0.017 (0.000-0.056) ng/mL Total Protein 5.9 L (6.4-8.2) g/dL Albumin 3.3 L (3.4-5.0) g/dL Globulin 2.6 (2.3-3.5) g/dL Albumin/Globulin Ratio 1.3 (1.2-2.2) Meds: Medications Generic Name Dose Route Start Last Admin Trade Name Freq PRN Reason Stop Dose Admin Sodium Chloride 1,000 mls @ 125 mls/hr 07/25/17 04:00 07/25/17 04:04 Normal Saline IV 125 mls/hr ASDIRECTED JASON Administration Diltiazem HCl 100 mg/ Sodium 100 mls @ 5 mls/hr 07/25/17 04:00 07/25/17 04:28 Chloride IV 0 mg/hr TITRATE JASON 0 mls/hr Protocol Titration 5 MG/HR Sodium Chloride 10 ml 07/25/17 03:49 07/25/17 04:04 Saline Flush FLUSH 10 ml ASDIRECTED PRN Administration Keep Vein Open Discontinued Medications Generic Name Dose Route Start Last Admin Trade Name Freq PRN Reason Stop Dose Admin Diltiazem HCl 20 mg 07/25/17 03:50 07/25/17 04:04 Diltiazem IVPUSH 07/25/17 03:51 20 mg ONETIME ONE Administration Departure - Departure Time of Disposition: 05:10 Disposition: Home, Self-Care 01 Condition: Fair Clinical Impression: Atrial fibrillation Qualifiers: Atrial fibrillation type: paroxysmal Qualified Code(s): I48.0 - Paroxysmal atrial fibrillation Referrals: Angel Lucero MD [Primary Care Provider] - Additional Instructions: Continue with your regular medications, please follow-up with your primary care next week for further evaluation return to the emergency department with worsening of symptoms - My Orders Last 24 Hours: My Active Orders 07/25/17 03:49 Cardiac Monitoring [RC] .As Directed Sodium Chloride 0.9% [Saline Flush] 10 ml FLUSH ASDIRECTED PRN Peripheral IV Insertion Adult [OM.PC] Stat 07/25/17 03:50 EKG Documentation Completion [RC] ASDIRECTED Peripheral IV Care [RC] . DIRECTED EKG 12 Lead [EK] Stat 07/25/17 04:00 Diltiazem [Cardizem] 100 mg Sodium Chloride 0.9% [Normal Saline] 100 ml IV TITRATE Sodium Chloride 0.9% [Normal Saline] 1,000 ml IV ASDIRECTED - Assessment/Plan Last 24 Hours: My Active Orders 07/25/17 03:49 Cardiac Monitoring [RC] .As Directed Sodium Chloride 0.9% [Saline Flush] 10 ml FLUSH ASDIRECTED PRN Peripheral IV Insertion Adult [OM.PC] Stat 07/25/17 03:50 EKG Documentation Completion [RC] ASDIRECTED Peripheral IV Care [RC] . DIRECTED EKG 12 Lead [EK] Stat 07/25/17 04:00 Diltiazem [Cardizem] 100 mg Sodium Chloride 0.9% [Normal Saline] 100 ml IV TITRATE Sodium Chloride 0.9% [Normal Saline] 1,000 ml IV ASDIRECTED Plan: Assessment Acuity = acute on chronic Site and laterality = paroxysmal atrial fibrillation Etiology = unclear etiology Manifestations = none Location of injury = Home Lab values = CBC unremarkable, INR subtherapeutic 1.86 potassium low at 3.3 consistent hypokalemia troponin is negative albumin low at 2.3 consistent with hypoalbuminemia EKG shows atrial fibrillation rate of [address] elevations or depressions Plan I did discuss options with him we tried a bolus Cardizem he is rate did slow down into the 40s elected not to proceed with the drip he is remained asymptomatic while in atrial fibrillation rate continues to range average of 60s. Because he is anticoagulated elected to continue at this rate and not convert the rhythm, plan to have him follow-up with cardiology for further evaluation This note was dictated using [employer] voice recognition software please call with any questions on syntax or [place].
[2017-07-25] MEDS ORDERED: Sodium Chloride 0.9% 1,000 ML IV SCH (04:00)
[2017-07-25] MEDS ORDERED: Diltiazem 100 MG in Sodium Chloride 0.9% 100 ML IV SCH (04:00)
== END 2017-07-25 05:33 | disposition home or self-care (01) ==
LOC: JP.ED 03:39
DX: I48.0 Paroxysmal atrial fibrillation (principal); I10 Essential (primary) hypertension; Z88.5 Allergy status to narcotic agent; Z88.8 Allergy status to other drugs, medicaments and biological substances; Z79.899 Other long term (current) drug therapy; Z79.01 Long term (current) use of anticoagulants
CPT/HCPCS: 36415; 80053; 84484; 85025; 85610; 93005; 96365; 96376; 99284; J3490; J7030; J7040; J7050

== ENCOUNTER 2019-06-11 08:53 | Emergency (ER) | payer MEDICARE ==
--- NOTE | 2019-06-11 09:25 | EDM.PDOC ---
ED HPI GENERAL MEDICAL PROBLEM - General Chief Complaint: General Stated Complaint: FEVER, COUGH Time Seen by Provider: 06/11/19 09:17 Source of Information: Reports: Patient, Family, RN Notes Reviewed History Limitations: Reports: No Limitations - History of Present Illness INITIAL COMMENTS - FREE TEXT/NARRATIVE: 78-year-old gentleman presents emergency department with a complaint of cough and fever, he states he has a history of chronic bronchitis denies any tobacco use or exposure has dealt with it for several years however today he had a fever this morning of 101. He has had a cough and complaints of shortness of breath for the last 3 days denies any chest pain - Related Data Allergies Allergy/AdvReac Type Severity Reaction Status Date / Time hydrocodone Allergy Nausea and Verified 07/02/17 20:38 Vomiting Lbufagg-Noj-Piu Reductase Allergy Muscle Verified 07/02/17 20:38 Inhibitor Weakness Home Meds: Home Meds amLODIPine Besylate [Amlodipine Besylate] 10 mg PO DAILY 04/20/17 [History] hydroCHLOROthiazide [Hydrochlorothiazide] 25 mg PO DAILY 04/20/17 [History] Potassium Chloride 20 meq PO DAILY 05/15/17 [History] Metoprolol Succinate [Toprol Xl] 12.5 mg PO DAILY 07/02/17 [History] Warfarin [Coumadin] 5 mg PO MOTUTHFR 07/02/17 [History] Warfarin [Coumadin] 7.5 mg PO SUWESA 07/02/17 [History] Furosemide [Lasix] 20 mg PO DAILY #5 tab 06/11/19 [Rx] Past Medical History HEENT History: Reports: Cataract Cardiovascular History: Reports: Afib, Arrhythmia, Hypertension, Other (See Below) Other Cardiovascular History: flutter with cardiovertion Dermatologic History: Reports: Eczema - Infectious Disease History Infectious Disease History: Reports: Chicken Pox - Past Surgical History Head Surgeries/Procedures: Reports: None HEENT Surgical History: Reports: Cataract Surgery Cardiovascular Surgical History: Reports: None Neurological Surgical History: Reports: None Dermatological Surgical History: Reports: None Social & Family History - Family History Family Medical History: Noncontributory - Tobacco Use Smoking Status *Q: Never Smoker - Caffeine Use Caffeine Use: Reports: Coffee, Tea Other Caffeine Use: has went off caffeine for 2 weeks - Recreational Drug Use Recreational Drug Use: No ED ROS GENERAL - Review of Systems Review Of Systems: See Below Constitutional: Reports: Fever HEENT: Reports: No Symptoms Respiratory: Reports: Shortness of Breath, Cough, Sputum. Denies: Wheezing Cardiovascular: Reports: Dyspnea on Exertion. Denies: Chest Pain GI/Abdominal: Reports: No Symptoms ED EXAM, GENERAL - Physical Exam Exam: See Below Exam Limited By: No Limitations General Appearance: Alert, WD/WN, No Apparent Distress Neck: Normal Inspection, Supple, Non-Tender, Full Range of Motion Respiratory/Chest: Decreased Breath Sounds, Crackles, Rhonchi, Wheezing Cardiovascular: No Murmur, Irregularly Irregular GI/Abdominal: Soft, Non-Tender Course - Vital Signs Last Recorded V/S: Last Vital Signs Temp 97.9 F 06/11/19 09:09 Pulse 84 06/11/19 09:09 Resp 18 06/11/19 09:09 BP 146/94 H 06/11/19 09:09 Pulse Ox 94 L 06/11/19 09:09 - Orders/Labs/Meds Orders: Active Orders 24 hr Category Date Time Status Furosemide [Lasix] Med 06/11/19 10:40 Once 20 mg PO ONETIME ONE Labs: Laboratory Tests 06/11/19 06/11/19 06/11/19 Range/Units 09:26 09:26 09:26 WBC 6.0 (4.5-11.0) K/uL RBC 5.14 (4.30-5.90) M/uL Hgb 14.9 (12.0-15.0) g/dL Hct 45.9 (40.0-54.0) % MCV 89 (80-98) fL MCH 29 (27-31) pg MCHC 33 (32-36) % Plt Count 162 (150-400) K/uL Neut % (Auto) 83 H (36-66) % Lymph % (Auto) 9 L (24-44) % [place] % (Auto) 7 H (2-6) % Eos % (Auto) 0 L (2-4) % Baso % (Auto) 0 (0-1) % PT (9.5-12.0) sec INR (0.80-1.20) Sodium 137 L (140-148) mmol/L Potassium 3.1 L (3.6-5.2) mmol/L Chloride 101 (100-108) mmol/L Carbon Dioxide 28 (21-32) mmol/L Anion Gap 11.1 (5.0-14.0) mmol/L BUN 14 (7-18) mg/dL Creatinine 1.2 (0.8-1.3) mg/dL Est Cr Clr Drug Dosing 51.55 mL/min Estimated GFR (MDRD) 59 L (>60) Glucose 215 H (74-106) mg/dL Lactic Acid 2.1 H (0.4-2.0) mmol/L Calcium 8.2 L (8.5-10.1) mg/dL Total Bilirubin 2.0 H D (0.2-1.0) mg/dL AST 36 (15-37) U/L ALT 38 (12-78) U/L Alkaline Phosphatase 97 (46-116) U/L Troponin I < 0.017 (0.000-0.056) ng/mL NT-Pro-B Natriuret Pep (5-450) pg/mL Total Protein 6.6 (6.4-8.2) g/dL Albumin 3.5 (3.4-5.0) g/dL Globulin 3.1 (2.3-3.5) g/dL Albumin/Globulin Ratio 1.1 L (1.2-2.2) 06/11/19 06/11/19 Range/Units 09:26 09:26 WBC (4.5-11.0) K/uL RBC (4.30-5.90) M/uL Hgb (12.0-15.0) g/dL Hct (40.0-54.0) % MCV (80-98) fL MCH (27-31) pg MCHC (32-36) % Plt Count (150-400) K/uL Neut % (Auto) (36-66) % Lymph % (Auto) (24-44) % [place] % (Auto) (2-6) % Eos % (Auto) (2-4) % Baso % (Auto) (0-1) % PT 25.4 H (9.5-12.0) sec INR 2.48 H (0.80-1.20) Sodium (140-148) mmol/L Potassium (3.6-5.2) mmol/L Chloride (100-108) mmol/L Carbon Dioxide (21-32) mmol/L Anion Gap (5.0-14.0) mmol/L BUN (7-18) mg/dL Creatinine (0.8-1.3) mg/dL Est Cr Clr Drug Dosing mL/min Estimated GFR (MDRD) (>60) Glucose (74-106) mg/dL Lactic Acid (0.4-2.0) mmol/L Calcium (8.5-10.1) mg/dL Total Bilirubin (0.2-1.0) mg/dL AST (15-37) U/L ALT (12-78) U/L Alkaline Phosphatase (46-116) U/L Troponin I (0.000-0.056) ng/mL NT-Pro-B Natriuret Pep 3268 H (5-450) pg/mL Total Protein (6.4-8.2) g/dL Albumin (3.4-5.0) g/dL Globulin (2.3-3.5) g/dL Albumin/Globulin Ratio (1.2-2.2) Departure - Departure Time of Disposition: 10:44 Disposition: Home, Self-Care 01 Condition: Fair Clinical Impression: Fluid overload Qualifiers: Hypervolemia type: other Qualified Code(s): E87.79 - Other fluid overload - Discharge Information Referrals: Ovidio Jones MD [Primary Care Provider] - Forms: ED Department Discharge Additional Instructions: Take the Lasix 20 mg once a day, follow-up with your primary care in the next 5 to 7 days for reevaluation, recommend monitoring your weight at home as well as your shortness of breath on exertion and your cough. Your medications have been [facility] [place] Sepsis Event Note - Evaluation Sepsis Screening Result: No Definite Risk - Focused Exam Vital Signs: Vital Signs Temp Pulse Resp BP Pulse Ox 06/11/19 09:09 97.9 F 84 18 146/94 H 94 L Date Exam was Performed: 06/11/19 Time Exam was Performed: 10:40 - My Orders Last 24 Hours: My Active Orders 06/11/19 10:40 Furosemide [Lasix] 20 mg PO ONETIME ONE - Assessment/Plan Last 24 Hours: My Active Orders 06/11/19 10:40 Furosemide [Lasix] 20 mg PO ONETIME ONE Plan: Assessment Acuity = acute Site and laterality = fluid overload Etiology = concern for underlying congestive heart failure Manifestations = dyspnea with exertion and cough Location of injury = Home Lab values = CBC unremarkable INR therapeutic 2.48 potassium low at 3.1 consistent with hypokalemia total bilirubin up to 2.0 consistent hyperbilirubinemia troponin is negative, BNP markedly elevated 3268 consistent with fluid overload type pattern, chest x-ray shows no acute process Plan I did review lab work with him plan is to try Lasix 20 mg once a day for the next 5 days and monitor his weight he thinks he is up about 4 pounds I have him follow-up with his primary care in the next 5 to 7 days for reevaluation This note was dictated using [employer] voice recognition software please call with any questions on syntax or grammar.
--- NOTE | 2019-06-11 09:57 | CRLCR ---
INDICATION: cough TECHNIQUE: Chest 2 views. COMPARISON: 05/15/17 FINDINGS: Cardiovascular and mediastinum: Heart size and vasculature are normal in caliber and appearance. Mediastinum is within normal limits. Lungs and pleural spaces: Lungs are clear. No sign of infiltrate or mass. No sign of pleural effusion. No pneumothorax. Bones and soft tissues: No significant findings. IMPRESSION: Unremarkable chest. Dictated by: Lon Dotson MD @ 06/11/2019 09:56:14 (Electronically Signed)
[2019-06-11] MEDS ORDERED: Furosemide 20 MG Tab PO ONE (10:40)
== END 2019-06-11 10:58 | disposition home or self-care (01) ==
LOC: JP.ED 08:53
DX: E87.79 Other fluid overload (principal); I10 Essential (primary) hypertension; I48.91 Unspecified atrial fibrillation; Z79.01 Long term (current) use of anticoagulants; Z98.49 Cataract extraction status, unspecified eye; Z88.8 Allergy status to other drugs, medicaments and biological substances; Z79.899 Other long term (current) drug therapy
CPT/HCPCS: 36415; 71046; 80053; 83605; 83880; 84484; 85025; 85610; 87804; 99283; 99284; A9270

== ENCOUNTER 2021-02-06 21:55 | Emergency (ER) | payer MEDICARE ==
--- NOTE | 2021-02-06 22:31 | EDM.PDOC ---
ED HPI GENERAL MEDICAL PROBLEM - General Chief Complaint: General Stated Complaint: INR 10+ Time Seen by Provider: 02/06/21 22:01 Source of Information: Reports: Patient History Limitations: Reports: No Limitations - History of Present Illness INITIAL COMMENTS - FREE TEXT/NARRATIVE: Enrique is a 80-year-old male presenting to the ED for evaluation after being notified tonight by the [facility] triage nurse that his INR was greater than 10. The patient is on Coumadin for chronic atrial fibrillation. Apparently he found out today that he had widely metastatic liver cancer. The patient has had increased fatigue over the last several days. This has been remained unchanged. Yesterday he had some pain in the stomach region but this is subsequently gone away after he had a large bowel movement this morning. The patient did a fit test on 02/05/2021 that was positive which raises my concern with him now having a Coumadin level INR greater than 10.8. We will repeat his CBC and INR. denies pain Pain Score (Numeric/FACES): 0 - Related Data Allergies Allergy/AdvReac Type Severity Reaction Status Date / Time hydrocodone Allergy Nausea and Verified 02/06/21 22:14 Vomiting [id number] Reductase Allergy Muscle Verified 02/06/21 22:14 Inhibitor Weakness Home Meds: Home Meds amLODIPine Besylate [Amlodipine Besylate] 10 mg PO DAILY 04/20/17 [History] hydroCHLOROthiazide [Hydrochlorothiazide] 25 mg PO DAILY 04/20/17 [History] Potassium Chloride 20 meq PO DAILY 05/15/17 [History] Metoprolol Succinate [Toprol Xl] 12.5 mg PO DAILY 07/02/17 [History] Warfarin [Coumadin] 5 mg PO MOTUTHFR 07/02/17 [History] Warfarin [Coumadin] 7.5 mg PO SUWESA 07/02/17 [History] Past Medical History HEENT History: Reports: Cataract Cardiovascular History: Reports: Afib, Arrhythmia, Hypertension, Other (See Below) Other Cardiovascular History: flutter with cardiovertion Dermatologic History: Reports: Eczema - Infectious Disease History Infectious Disease History: Reports: Chicken Pox - Past Surgical History Head Surgeries/Procedures: Reports: None HEENT Surgical History: Reports: Cataract Surgery Cardiovascular Surgical History: Reports: None Neurological Surgical History: Reports: None Dermatological Surgical History: Reports: None Social & Family History - Family History Family Medical History: No Pertinent Family History - Caffeine Use Caffeine Use: Reports: Coffee, Tea Other Caffeine Use: has went off caffeine for 2 weeks ED ROS GENERAL - Review of Systems Review Of Systems: See Below Constitutional: Reports: Fatigue (The last several days) HEENT: Reports: No Symptoms Respiratory: Reports: No Symptoms Cardiovascular: Reports: Palpitations (History of chronic atrial fibrillation) Endocrine: Reports: Fatigue GI/Abdominal: Reports: Abdominal Pain (Intermittent epigastric pain) : Reports: No Symptoms Musculoskeletal: Reports: No Symptoms Skin: Reports: No Symptoms Neurological: Reports: No Symptoms Psychiatric: Reports: No Symptoms Hematologic/Lymphatic: Reports: No Symptoms Immunologic: Reports: No Symptoms ED EXAM, GENERAL - Physical Exam Exam: See Below Exam Limited By: No Limitations General Appearance: Alert, No Apparent Distress, Anxious Eye Exam: Bilateral Eye: EOMI, PERRL Throat/Mouth: Normal Oropharynx Head: Atraumatic Neck: Normal Inspection Respiratory/Chest: No Respiratory Distress, Lungs Clear, Normal Breath Sounds Cardiovascular: Tachycardia, Irregularly Irregular Peripheral Pulses: 2+: Radial (L), Radial (R) GI/Abdominal: Normal Bowel Sounds, Soft, Non-Tender Extremities: Normal Range of Motion, Pedal Edema (2+ bilateral pedal edema to the level of the mid calf.) Neurological: Alert, Oriented, Normal Cognition, No Motor/Sensory Deficits Psychiatric: Normal Affect, Normal Mood Skin Exam: Warm, Dry Course - Vital Signs Last Recorded V/S: Last Vital Signs Temp 36.0 C L 02/06/21 22:20 Pulse 78 02/06/21 22:42 Resp 16 02/06/21 22:20 BP 125/61 02/06/21 22:42 Pulse Ox 98 02/06/21 22:20 - Orders/Labs/Meds Orders: Active Orders 24 hr Category Date Time Status Sodium Chloride 0.9% [Saline Flush] Med 02/06/21 23:02 Active 10 ml FLUSH ASDIRECTED PRN Saline Lock Insert [OM.PC] Routine Oth 02/06/21 23:02 Ordered Medication Orders Sodium Chloride (Sodium Chloride 0.9% 10 Ml Syringe) 10 ml FLUSH ASDIRECTED PRN PRN Reason: Keep Vein Open Last Admin: 02/06/21 23:20 Dose: 10 ml Documented by: RANI Labs: Laboratory Tests 02/06/21 02/06/21 Range/Units 22:25 22:25 WBC 18.7 H (4.5-11.0) K/uL RBC 5.02 (4.30-5.90) M/uL Hgb 11.2 L D (12.0-15.0) g/dL Hct 36.2 L (40.0-54.0) % MCV 72 L (80-98) fL MCH 22 L (27-31) pg MCHC 31 L (32-36) % Plt Count 546 H (150-400) K/uL PT 100.0 H (9.5-12.0) sec INR (0.80-1.20) Meds: Medications Generic Name Dose Route Start Last Admin Trade Name Freq PRN Reason Stop Dose Admin Sodium Chloride 10 ml 02/06/21 23:02 02/06/21 23:20 Sodium Chloride 0.9% 10 Ml Syringe FLUSH 10 ml ASDIRECTED PRN Administration Keep Vein Open Discontinued Medications Generic Name Dose Route Start Last Admin Trade Name Freq PRN Reason Stop Dose Admin Phytonadione 10 mg/ Sodium 51 mls @ 100 mls/hr 02/06/21 23:02 02/06/21 23:18 Chloride IV 02/06/21 23:32 100 mls/hr NOW ONE Administration - Re-Assessments/Exams Free Text/Narrative Re-Assessment/Exam: 02/06/21 23:04 labs were reviewed and compared to what was obtained in the clinic earlier today. The CBC earlier today showed a leukocyte count of 18.5 with a hemoglobin of 11.2 and a hematocrit of 38.1. Platelet count is 509,000. His INR was greater than 10.8 with a PT greater than 80. Labs tonight show a leukocyte count of 18.6 with a hemoglobin of 11.2, hematocrit of 36.2 and a platelet count of 546,000. The INR was unobtainable because the pro time was greater than 100. With this we will get an IV established and give the patient vitamin K 10 mg IV. As the hemoglobin is stable, I believe the patient can go home but will need to have a recheck of his INR tomorrow. He should withhold any further Coumadin until instructed to restart. I did review with him indications to return to the ED should he develop any bleeding. I did not repeat the rectal exam because he reports that that was a fit test and with his hemoglobin remaining unchanged tonight and the patient having relatively no symptoms of abdominal pain at this time, I do not feel that the trauma of doing a digital exam is indicated. Patient is instructed that if he sees any dark, tarry stools or bloody stools he should return to the ED immediately. Departure - Departure Time of Disposition: 00:04 Disposition: Home, Self-Care 01 Clinical Impression: Supratherapeutic INR - Discharge Information Referrals: Angel Honeycutt MD [Primary Care Provider] - Forms: ED Department Discharge Care Plan Goals: We have given you IV vitamin K which works with the liver to reproduce clotting factors that are blocked by Coumadin. I would hold your Coumadin until instructed to restart it. I would like you to follow-up in the clinic tomorrow for recheck of your INR. You will likely need to have this checked every day through the weekend until your INR is below 2.5. At that time you will likely need to restart your Coumadin. Call and discuss this with your doctor at the [facility]. If you develop any bleeding in the interim, please return immediately to the ER for reevaluation. Right now your laboratory results are similar to what they were earlier today when you were in the clinic so I do not believe that she requires hospitalization at this time. It does appear that your hemoglobin is stable at 11.2 so I do not believe we need to repeat the rectal exam. Certainly being mindful if you see any dark or tarry s tools or bright red blood in the toilet. These are indications to return for reevaluation. You are in my prayers and good luck with your work-up at [facility]. I do believe that that is the best place to go at this point. Sepsis Event Note (ED) - Focused Exam Vital Signs: Vital Signs Temp Pulse Resp BP Pulse Ox 02/06/21 22:42 78 125/61 02/06/21 22:20 36.0 C L 83 16 130/75 98 02/06/21 22:13 36.0 C L 83 16 130/75 98 - Problem List & Annotations (1) Supratherapeutic INR SNOMED Code(s): 390565219 Code(s): R79.1 - ABNORMAL COAGULATION PROFILE Status: Acute Priority: Medium Current Visit: Yes - Problem List Review Problem List Initiated/Reviewed/Updated: Yes - My Orders Last 24 Hours: My Active Orders 02/06/21 23:02 Sodium Chloride 0.9% [Saline Flush] 10 ml FLUSH ASDIRECTED PRN Saline Lock Insert [OM.PC] Routine - Assessment/Plan Last 24 Hours: My Active Orders 02/06/21 23:02 Sodium Chloride 0.9% [Saline Flush] 10 ml FLUSH ASDIRECTED PRN Saline Lock Insert [OM.PC] Routine
[2021-02-06] MEDS ORDERED: Sodium Chloride 0.9% 10 ML Syringe FLUSH PRN (23:02)
[2021-02-06] MEDS ORDERED: Phytonadione 10 MG in Sodium Chloride 0.9% 50 ML IV ONE (23:02)
== END 2021-02-07 00:40 | disposition home or self-care (01) ==
LOC: JP.ED 21:55
DX: R79.1 Abnormal coagulation profile (principal); I48.91 Unspecified atrial fibrillation; I10 Essential (primary) hypertension; Z88.5 Allergy status to narcotic agent; Z88.8 Allergy status to other drugs, medicaments and biological substances; Z79.899 Other long term (current) drug therapy
CPT/HCPCS: 36415; 85027; 85610; 96365; 99284; J3430